=== PATIENT | female | born 1960 | race Caucasian/White ===

== ENCOUNTER 2017-05-26 06:39 | Emergency (ER) | payer BC ==
[~2017-05-26] VITALS: Ht 157.5 cm; Wt 68.0 kg
[2017-05-26 06:45] VITALS: Ht 157.5 cm; Wt 68.0 kg
[2017-05-26] MEDS ORDERED: DIPHENHYDRAMINE 50 MG INJ IV STA (07:35)
[2017-05-26] MEDS ORDERED: FAMOTIDINE 20 MG INJ IV STA (07:35)
[2017-05-26] MEDS ORDERED: METHYLPREDNISOLONE 125 MG INJ IV STA (07:35)
[2017-05-26] MEDS ORDERED: PRED20TA PO (08:15)
[2017-05-26] MEDS ORDERED: EPIN0.3P4 INJ (08:15)
[2017-05-26] MEDS ORDERED: BEN25 PO (08:15)
--- NOTE | 2017-05-26 08:19 | ERD ---
ER Documentation Chief Complaint Chief Complaint Pt with Skin rash since yesterday, heads "feels hot", Chemo 8 days ago. HPI This is a 56-year-old female on chemo he said that she developed an itchy rash yesterday. She has hives all over that H. Denies any new medication. No shortness of breath chest pain is swelling of her lips and tongue throat or face. No difficulty swallowing or speaking. The hives tend to come and go in different locations. Denies any recent new food changes no berries nuts shellfish ROS All systems reviewed and are negative except as per history of present illness. Medications Home Meds Active Scripts Diphenhydramine Hcl* (Benadryl*) 25 Mg Cap, 25 MG PO Q6 Y for ITCHING/RASH, #30 TAB Prov:LIZANDRO BRITO DO 05/26/17 Epinephrine (Epipen 2-Arturo) 0.3 Mg/0.3 Ml Pen.injctr, 1 EA INJ ONCE Y for ALLERGIC REACTION, #1 EA Prov:LIZANDRO BRITO DO 05/26/17 Prednisone* (Prednisone*) 20 Mg Tab, 60 MG PO DAILY for 5 Days, TAB Prov:ADE BRITOS Toyin. DO 05/26/17 Allergies Allergies: Coded Allergies: No Known Drug Allergy (Verified Allergy, Unknown, 10/19/09) PMhx/Soc History of Surgery: Yes (LEFT LEG VARICOSE VEIN SURGERY;HEMORRHOIDECTOMY) Anesthesia Reaction: No Hx Neurological Disorder: No Hx Respiratory Disorders: No Hx Cardiac Disorders: No Hx Psychiatric Problems: No Hx Miscellaneous Medical Probl: No Hx Alcohol Use: No Hx Substance Use: No Hx Tobacco Use: No FmHx Family History: No coronary disease Physical Exam Vitals Vital Signs Date Time Temp Pulse Resp B/P Pulse Ox O2 Delivery O2 Flow Rate FiO2 05/26/17 06:45 98.1 88 18 132/92 100 Physical Exam Const: Well-developed, well-nourished Head: Atraumatic, normocephalic Eyes: Normal Conjunctiva, PERRLA, EOMI, normal sclera, no nystagmus ENT: Normal External Ears, Nose and Mouth, moist mucus membranes. Neck: Full range of motion. No meningismus, no lymphadenopathy. Resp: Clear to auscultation bilaterally, no wheezing, rhonchi, rales Cardio: Regular rate and rhythm, no murmurs, S1 S2 present Abd: Soft, non tender x 4, non distended. Normal bowel sounds, no guarding or rebound, no pulsitile abdominal masses or bruits Skin: [Diffuse hives on her extremities and trunk Back: No midline or flank tenderness Ext: No cyanosis, or edema, FROM x 4, normal inspection, neurovascularly intact x 4 Neur: Awake and alert, STR 5/5 x 4, sensation intact x 4, no focal findings, cerebellum intact Psych: Normal Mood and Affect Results 24 hrs Current Medications Medications (Trade) Dose Ordered Sig/Kosta Route PRN Reason Start Time Stop Time Status Last Admin Dose Admin Diphenhydramine HCl (Benadryl) 25 mg ONCE STAT IV 05/26/17 07:35 05/26/17 07:36 DC 05/26/17 07:59 Famotidine (Pepcid Iv) 20 mg ONCE STAT IV 05/26/17 07:35 05/26/17 07:36 DC 05/26/17 08:00 Methylprednisolone Sodium Succinate (Solu-Medrol) 125 mg ONCE STAT IV 05/26/17 07:35 05/26/17 07:36 DC 05/26/17 08:00 Procedures/MDM After IV Benadryl steroids and Pepcid the patient is doing better. Discharge home with allergic reaction of prednisone and EpiPen and Benadryl Departure Diagnosis: Primary Impression: Allergic reaction Encounter type: initial encounter Qualified Code: T78.40XA - Allergic reaction, initial encounter Condition: Stable Patient Instructions: Allergic Reaction, LIZANDRO Hogue DO May 26, 2017 08:19
[2017-05-26 09:00] VITALS: BP 126/70; PULSE 64; RESP 18; TEMP 98
== END 2017-05-26 09:00 | disposition home or self-care (01) ==
LOC: E/R 06:39
DX: R21 Rash and other nonspecific skin eruption (principal)
CPT/HCPCS: 96374; 96375; 99284; J1200; J2930; Z7610

== ENCOUNTER 2017-06-04 15:23 | Emergency (ER) | payer BC ==
[~2017-06-04] VITALS: Wt 69.0 kg
[~2017-06-04 15:23] MED LIST: BEN25 PO; EPIN0.3P4 INJ; PRED20TA PO
--- NOTE | 2017-06-04 16:29 | ERD ---
ER Documentation Chief Complaint Chief Complaint eye tearing HPI This 56-year-old female presents to emergency department for complaint of itchy , watery eyes, that bilateral eyes sealed shut in the AM. Patient denies any allergy symptoms, denies runny nose, itchy ears, postnasal drip, cough. Patient reports that she is currently undergoing treatment for breast cancer is on 3 of 4 chemotherapy doses her last dose is next Saturday. ROS All systems reviewed and are negative except as per history of present illness. Medications Home Meds Active Scripts Diphenhydramine Hcl* (Benadryl*) 25 Mg Cap, 25 MG PO Q6 Y for ITCHING/RASH, #30 TAB Prov:ADE BRITOS A. DO 05/26/17 Epinephrine (Epipen 2-Arturo) 0.3 Mg/0.3 Ml Pen.injctr, 1 EA INJ ONCE Y for ALLERGIC REACTION, #1 EA Prov:OSMANY BRITOSTDANIELS A. DO 05/26/17 Prednisone* (Prednisone*) 20 Mg Tab, 60 MG PO DAILY for 5 Days, TAB Prov:OSMANY BRITOSTDANIELS A. DO 05/26/17 Allergies Allergies: Coded Allergies: No Known Drug Allergy (Verified Allergy, Unknown, 10/19/09) PMhx/Soc History of Surgery: Yes (LEFT LEG VARICOSE VEIN SURGERY;HEMORRHOIDECTOMY) Anesthesia Reaction: No Hx Neurological Disorder: No Hx Respiratory Disorders: No Hx Cardiac Disorders: No Hx Psychiatric Problems: No Hx Miscellaneous Medical Probl: No Hx Alcohol Use: No Hx Substance Use: No Hx Tobacco Use: No Physical Exam Vitals Vital Signs Date Time Temp Pulse Resp B/P Pulse Ox O2 Delivery O2 Flow Rate FiO2 06/04/17 15:25 97.5 84 20 108/68 99 Vitals stable, triage notes reviewed Physical Exam Const: Well-nourished well-appearing well-hydrated 56-year-old female no acute distress Head: Eyes: Eye Exam: Visual Acuity: Right eye 2024, left eye 20/25, both eyes 2019 without correction Visual Estrada: Intact in all four quadrants bilaterally Lac ducts/glands: No swelling Lids w/ evertion: Normal, no foreign body Conj/Haw[place]orn: Slightly jaundiced,, PERRLA, EOMI, dried yellow crust noted bilateral lashes in carbuncle, lacrimal puncta patent no discharge ENT: Normal External Ears, Nose and Mouth. Neck: . Resp: Cardio: Abd: Skin: Back: Ext: Neur: Awake and alert Psych: Normal Mood and Affect Procedures/MDM This pleasant 65-year-old patient presents to the emergency department for bilateral eye itching, tearing, and discharge, eyes revealed crusted shut in the morning. Patient currently is undergoing chemotherapy for breast cancer. Is on her third to fourth chemo treatment last treatment is next Saturday. Patient denies any other complaints at this time. Emergency room course includes visual acuity with normal findings. Plan to treat patient with Vigamox 1 drop bilaterally 3 times daily 7 days. Follow-up with primary care physician for liver monitoring secondary to chemotherapy. Patient is stable with no new complaints during ER course, clinically there is no current evidence to suggest meningitis, sepsis, acute abdomen, acute coronary syndromes , pulmonary embolism or any other emergent condition appearing to require further evaluation or hospitalization. I feel the patient is stable for discharge at this time. I have discussed results, examination findings, the treatment plan with the patient and family present prior to discharge. Indications for emergent reevaluation, side effects of medication were also discussed. All questions were answered. Patient verbalizes understanding and agrees with plan of care. Departure Diagnosis: Primary Impression: Conjunctivitis Conjunctivitis type: acute Acute conjunctivitis type: bacterial Laterality : bilateral Qualified Code: H10.33 - Acute bacterial conjunctivitis of both eyes Condition: Good Patient Instructions: Conjunctivitis Caused by Infection Additional Instructions: Thank you for for coming to [facility] for your care today. Please ask your nurse or provider if you have questions about your care today and do not leave until all your questions have been answered. Please use any medications given as directed and follow-up with your doctor (or the doctor you were referred to) in the next 2-3 days. If you do not have a primary care doctor you may follow up at the [facility] (listed below). You may also use motrin and tylenol as needed for fever and/or pain unless instructed otherwise by your provider or nurse. Indications for more urgent follow-up have been discussed, but you may return to the Emergency Department at ANY time for any worrisome or worsening symptoms. If you have abdominal pain, please know that no test or exam you received is perfect and you should follow up within 8 hours for continued pain. If you had any imaging studies today, such as an X-Ray or CT Scan, these studies will be reviewed later by a radiologist. You will be called if there are important findings that were not identified today, so make sure the contact information you provided at registration is correct. If you received any narcotic pain control medicine today, such as Vicodin, Morphine or Dilaudid, your coordination and judgment may be affected for a number of hours. Please do not drive or operate heavy machinery, and you may want someone to assist you at home. If you were given a prescription for narcotic medication, be aware that it is very addictive- use sparingly and only if necessary. JAQUAN LUCERO Jun 04, 2017 16:29
[2017-06-04] MEDS ORDERED: VIGA BOTH EYES (17:28)
== END 2017-06-04 17:32 | disposition home or self-care (01) ==
LOC: FTE 15:23
DX: H10.33 Unspecified acute conjunctivitis, bilateral (principal)
CPT/HCPCS: 99283